=== PATIENT | female | born 1970 | race Caucasian/White ===

== ENCOUNTER 2019-05-10 08:56 | Outpatient (CLI) | payer OTHER, SELFPAY ==
--- NOTE | ~2019-05-10 | MM_ITS ---
EXAMINATION: MM screening [facility] BI w andre HISTORY: Screening mammogram TECHNIQUE: Craniocaudal and mediolateral oblique 3-D tomosynthesis images were obtained and synthetic 2-D images were generated. CAD analysis was submitted and interpreted. COMPARISON: 12/26/2015, 05/05/2012 BREAST PARENCHYMAL COMPOSITION: The breasts are heterogeneously dense, which may obscure small masses . FINDINGS: There is no evidence of suspicious mass, calcification, or architectural distortion to sugg est malignancy in either breast. There has been no suspicious interval change. IMPRESSION: 1. No mammographic evidence of malignancy. 2. Recommend routine screening mammography in one year. BI-RADS Category 1: Negative Reviewed, dictated and finalized at location A. ON OFFICER
== END 2019-05-10 08:57 | disposition home or self-care (01) ==
LOC: ANHIMG 09:00
PROVIDERS: PCP Obstetrics & Gynecology; Visit Provider Obstetrics & Gynecology
DX: Z12.31 Encounter for screening mammogram for malignant neoplasm of breast (principal)
CPT/HCPCS: 77063; 77067

== ENCOUNTER 2021-03-03 09:20 | Outpatient (CLI) | payer OTHER, SELFPAY ==
[2021-03-03 09:54] LABS: Basophils Absolute Auto 0.1 K/mm3 (0.0-0.1); Eosinophils Absolute Auto 0.3 K/mm3 (0-0.3); Eosinophils Percent Auto 5.4 % (0-4.4); Hemoglobin 13.2 g/dL (12.0-15.0); Immature Granulocyte Absolute 0.01 K/mm3 (0.00-0.031); Immature Granulocyte Percent A 0.2 % (0-0.5); Lymphocytes Absolute Auto 1.87 K/mm3 (0.9-3.2); Lymphocytes Percent Auto 31.6 % (18.3-44.2); Mean Corpuscular HGB Conc 33.8 g/dl (32-36); Mean Corpuscular Hemoglobin 32.4 pg (26-34); Mean Corpuscular Volume 95.8 fl (80-100); Mean Platelet Volume 9.2 fl (7.4-10.4); Monocytes Absolute Auto 0.4 K/mm3 (0.1-0.6); Monocytes Percent Auto 6.8 % (2.6-8.5); Neutrophils Absolute Auto 3.3 K/mm3 (1.3-6.7); Platelet Count Result 194 k/mm3 (150-375); Red Blood Count 4.07 M/mm3 (4.2-5.4); Red Cell Distribution Width 12.6 % (11.5-14.5); White Blood Count 5.9 K/mm3 (4.5-10.0)
== END 2021-03-03 09:21 | disposition home or self-care (01) ==
LOC: ANHSURGERY 09:25
PROVIDERS: Anesthesiology; PCP Family Medicine Sports Medicine; Visit Provider Obstetrics & Gynecology
DX: N93.8 Other specified abnormal uterine and vaginal bleeding (principal); Z01.818 Encounter for other preprocedural examination
CPT/HCPCS: 36415; 85025; 86850; 86900; 86901

== ENCOUNTER 2021-03-07 01:05 | Day surgery (SDC) | payer OTHER, SELFPAY ==
[2021-02-24 09:53] VITALS: BMI 21.7
--- NOTE | 2021-02-24 10:36 | PC.NURSE ---
Report to the Outpatient Waiting Room, entrance under the green pavilion located off [address], at time _0600 on date _03/07/21 . OR Time: __729 . - You and your visitor will be asked a series of questions to screen for COVID 19 for your protection. - A mask is required within the hospital. - Only one visitor is allowed at this time. Patient visitors will be guided where to wait when not with patient. Preoperative COVID Testing Requirements: No COVID Test needed if: (proof is required; if not received patient will have Rapid Test prior to entry) PATTIENT IS FULLY VACCINATED - Patient has received COVID Vaccine at least 14 days prior to procedure date or - Patient has positive COVID test result within last 90 days of surgery date. COVID Test needed if above criteria is not met If not COVID vaccinated a COVID test must be conducted within 72 hours of surgery and patient is asked to isolate self from time of testing until procedure. You will go to the [facility] for your COVID testing. The [facility] is located at the corner of [address] [facility]. You will only be called if COVID results are positive and your surgeon may reschedule your elective surgery date. Patients may have clear liquids (water, carbonated beverages, clear teas, apple juice) until 3 hours prior to surgery with a maximum of 20 ounces. - No food from midnight until time of surgery - Infants may have breast milk until 4 hours before surgery, formula 6 hours prior to surgery. - Children will be allowed to drink immediately following surgery. If applicable, please bring a bottle or sippy cup to assist with drinking. Juice, water, soda, and popsicles are readily available. For infants on formula, please bring formula the day of surgery. Pacifiers are allowed. Take the following medications with a SIP of water the morning of surgery: __SYMBICORT, PROAIR Medications to discontinue per physician N/A Date to take last dose____N/A Please no make-up, nail eritrean, hairspray, perfume, deodorant, or body powder the day of surgery. No jewelry (including any body piercings) or valuables the day of surgery, leave them at home. Please take a shower or bath the night before, or the morning of, surgery with an antibacterial soap. Wear comfortable, loose fitting clothing. Children are encouraged to wear pajamas. - Jewelry must be removed prior to entering the operating room. Rings and piercings that are not removed may be cut off. - The hospital will not accept responsibility for valuables. - Please leave all valuables, including medications, at home the day of surgery. If you are going home after surgery, a licensed dairy truck driver must drive you home. - NO public transportation without another adult. - We recommend that an adult stay with you for 24 hours following discharge. - We also recommend that you do not drive, make important decision, drink alcoholic beverages, or take any drugs that were not prescribed by your health care provider for at least 24 hours after your discharge time. For Pediatric surgeries, we recommend two adults accompany the child home (only one inside the building at this time). Follow any additional instructions given to you from your surgeon. Telephone instructions given to TIA DUKE and asked if any additional questions and then verbalized understanding. Patient advised to call surgeon office or pre surgery nurse liaison [phone] if any additional questions.
--- NOTE | 2021-03-04 13:13 | PM.IMHP ---
H&P: HPI History of Present Illness Date/Time: 03/04/21 13:13 50-year-old 3 para 3 admitted for robotic total vaginal hysterectomy and bilateral salpingo-oophorectomy secondary to symptomatic uterine fibroids. She continues to have heavy menstrual periods and a lot of pain and discomfort. Risks and benefits were reviewed in great detail including but not exclusive of , aspiration pneumonia, bleeding, transfusion, perforation injury to bowel, bladder, ureters, or other internal organs with need for open laparotomy. She received the ACOG handout entitled hysterectomy as well as the de Clint hand. It she had all questions answered and asked to proceed Chief Complaint: Symptomatic uterine fibroids Review of Systems Review of Systems: All systems reviewed & are unremarkable except as noted in HPI and below PMFSH Social History Social History Smoking status: Never smoker Alcohol intake: current Substance use: never Substance use type: does not use Spiritual care concerns: No Meds Home Medications and Allergies Home Medications Medication Instructions Recorded Confirmed Type albuterol sulfate 2 puff INHALATION DAILY PRN 02/24/21 02/24/21 History budesonide-formoterol [Symbicort] 2 puff INHALATION PRN PRN 02/24/21 02/24/21 History Allergies Allergy/AdvReac Type Severity Reaction Status Date / Time No Known Allergies Allergy Unknown Unverified 03/01/15 08:49 Exam Const: General: no acute distress Eyes: General: appearance normal, both eyes and all related structures Neck: Neck: supple and no JVD Thyroid: thyroid normal Resp: Effort & Inspection: normal respiratory effort Auscultation: clear to auscultation bilaterally Cardio: Rate: regular rate Rhythm: regular rhythm GI: Inspection: non-distended GI Palp: Yes Soft to palpation, No Tenderness to palpation present (GI) and No Guarding due to palpation present (GI) Auscultation: normal bowel sounds : External Female Exam: normal external appearance Speculum Exam - Vagina: normal appearance of the vagina Speculum Exam - Cervix: normal appearance of the cervix Bimanual exam- vagina & uterus: enlarged Bimanual Exam- Adnexa, other: no masses Skin: General skin exam: no rashes or lesions noted Extrem: General: normal to inspection and no edema Psych: Mental Status: mental status grossly normal Affect: normal affect Assessment and Plan Additional Plan Impression: Symptomatic uterine fibroids Plan: Robotic total vaginal hysterectomy and bilateral salpingo-oophorectomy
[2021-03-07] VITALS (14 sets, daily range): BP systolic 86–113; BP diastolic 47–66; PULSE 50–74; RESP 10–18; TEMP 36.1–37.4; O2SAT 98–100
--- NOTE | 2021-03-07 06:46 | P.PNAN_ITS ---
Anes - Initial Pre Proc Eval Procedure: Operation Date: 03/07/21 07:30 Proposed Procedures p Robotic Assisted Total Vaginal Hysterectomy with Bilateral Salpingo- oophorectomy - Justin Berman MD Date/Time: 03/07/21 06:46 Surgeon: Justin Berman MD Pre Op Diagnosis: fibroids, heavy bleeding, prolapse Patient Data Age: 50 Gender: F Height: 1.73 m Weight: 66 kg Allergies Allergy/AdvReac Type Severity Reaction Status Date / Time No Known Allergies Allergy Unknown Unverified 03/01/15 08:49 Home Medications Medication Instructions Recorded Confirmed Type albuterol sulfate 2 puff INHALATION DAILY PRN 02/24/21 02/24/21 History budesonide-formoterol [Symbicort] 2 puff INHALATION PRN PRN 02/24/21 02/24/21 History Patient hx anesthesia problems: post op nausea/vomiting Family hx anesthesia problems: none Results Review: All pre-operative results and documents have been reviewed as part of the pre-operative evaluation. [facility] Past Medical History Medical History Acute intermittent porphyria Asthma Social History Social History Smoking status: Never smoker Alcohol intake: current Substance use: never Substance use type: does not use Living arrangements: with family Spiritual care concerns: No Anes - Eval Final PreProcedure Day of Procedure 03/07/21 06:46 Patient weight: normal Heart: regular rate and rhythm Lungs: clear to auscultation Airway: Mallampati scale class II Neurological: alert and oriented Last oral intake: >/= 8 hours ASA classification: III Emergent: no Anesthetic plan: proceed Anesthesia type and monitoring: general ETT and standard monitoring Results Review: All pre-operative results and documents have been reviewed as part of the pre-operative evaluation. Informed Consent: The patient's anesthetic plan and its attendant risks and benefits were discussed with the patient/family/POA. Questions were solicited and answers provided to the satisfaction of the patient/family/POA.
[2021-03-07] MEDS: ACETAMINOPHEN 500 MG TABLET 1000 MG PO (07:00)
--- NOTE | 2021-03-07 07:00 | WPDHPUPDATE1 ---
History and Physical Update Update Date/Time: 03/07/21 07:00 History and Physical has been reviewed, including an updated exam of the patient. There are NO changes in the patient's condition. Risks, benefits, and alternatives have been discussed and questions answered. Patient agrees to proceed with procedure.
[2021-03-07] MEDS: KETOROLAC 15 MG/ML VIAL (*BKC) IV PUSH (07:15)
[2021-03-07] MEDS: LACTATED RINGERS 1,000 ML 30 ML IV CONT ×2 (07:15→08:50)
[2021-03-07] MEDS: SCOPOLAMINE 1.5 MG PATCH TRANSDERM (07:21)
[2021-03-07] MEDS: ceFAZolin 2 GM/D5W 50 ML 2 GM/50 ML BAG IVPB (07:23)
--- NOTE | 2021-03-07 08:36 | W.PM.PROC2 ---
Procedure Note - Detailed Date of Procedure 03/07/21 Pre-op Diagnosis fibroids, heavy bleeding, prolapse Post-op Diagnosis same Procedure Performed Robotic total vaginal hysterectomy and bilateral salpingo-oophorectomy Surgeon Justin Berman MD Anesthesia general Indications Is a 50-year-old female with uterine prolapse pelvic pain bleeding and uterine fibroids Findings Enlarged uterus with normal-appearing tubes and ovaries Description of Procedure The patient was prepped draped in the normal sterile fashion placed in the dorsal lithotomy position. Under excellent general endotracheal anesthesia weighted speculum placed in posterior fornix vagina. Anterior lip of the cervix grasped with a single-tooth tenaculum and the uterus sounded to 10cm. Serial dilatation with fragmented dilators performed followed by passage of 8mm WILY and 3. Cold cup. A 16 Bulgarian catheter was placed in the bladder and the weighted speculum and single-tooth tenaculum removed. The gloves were changed A supraumbilical incision made the Veress needle passed in the abdomen. The abdomen filled with CO2 gas [id number]. The 8mm trocar advanced in the abdomen. The downside visualized no injury seen. Patient placed in Trendelenburg and left and right lateral quadrant incisions made. The 8mm trocars advanced under direct visualization assuring no injury. A right upper quadrant incision made and the 8mm trocar advanced under direct visualization assuring no injury. The robot was docked. Attention was turned to the retirement plan counselor. The left round ligament was grasped, burned, cut. Anterior bladder flap was formed by sharply dissecting the peritoneum and reflecting the bladder caudally away from the uterus and cervix to the opposite ligament which was clamped, burned, cut. The uterus was large and bulky. The infundibulopelvic structure on the left was skeletonized behind the ovary tube clamped, burned, cut and brought to level of previously cut round ligament. Removing the right ovary and tube the infundibulopelvic structure on the right was clamped, burned, cut and brought to the level of previous cut round ligament. Next the cardinal broad ligaments on the left were serially skeletonized. These were clamped, burned, cut and brought down the lateral edge of the uterus and cervix until the large tortuous vessels on the left could be seen. These were individually clamped, burned, cut. In like fashion the cardinal broad ligaments were serially skeletonized hugging the cervix and uterus on the right clamped, burned, cut and brought down the lateral edge until the uterine vessels could be seen on the right. These were individually clamped, burned, cut. Blanching of the uterus was seen and a colpotomy incision was made. The uterus cervix tubes and ovaries removed through the vagina. Blood loss was [id number] at that point. The uterus was passed off the table as the with the specimen. The vagina was closed with continuous running 0V lock from lateral edge to lateral edge back to the midline. Irrigation undertaken to clear and the pedicles appeared dry the raw surface areas were sprinkled with [place] term. Blood loss was estimated 25cc. The robot was undocked. The gas removed from the abdomen. The trocars removed from the abdomen the incisions closed with 4 Monocryl and glue. The instruments removed from vagina and the patient was awakened. She went to recovery in satisfactory condition. All sponge, needle, instrument counts were correct. There were no immediate complications Estimated Blood Loss 25 Drains No Packing No Pathology yes Complications No immediate complications Condition stable Disposition PACU
--- NOTE | 2021-03-07 09:30 | SUR.PHASEI ---
FAXED SUZANNE @[id number] AND SPOKE WITH OB 2ND FLOOR RIB STIFFENER AND HEEL DIPPER
[2021-03-07] MEDS: DEXTROSE 5%/LACTATED RINGERS 1,000 ML 125 ML IV CONT ×2 (11:24→19:09)
[2021-03-07] MEDS: KETOROLAC 30 MG/ML VIAL (*BKC) IV PUSH (13:46)
--- NOTE | 2021-03-07 13:53 | PC.NURSE ---
This patient, Angeline Chavez, was received from PACU on 03/07/21 at 1026. Patient/family oriented to unit policies and routines.
[2021-03-07] MEDS: ONDANSETRON INJ 4 MG/2 ML VIAL IV PUSH (19:14)
[2021-03-07] MEDS: SODIUM CHLORIDE 0.9% IV 1,000 ML 999 ML IV CONT (20:27)
[2021-03-08 03:37] VITALS: BP 93/54; PULSE 61; RESP 16; TEMP 37.4
[2021-03-08 04:50] LABS: Basophils Percent Auto 0.3 % (0.2-1.2); Eosinophils Absolute Auto 0.1 K/mm3 (0-0.3); Eosinophils Percent Auto 0.5 % (0-4.4); Hematocrit 33.1 % (37.0-47.0); Hemoglobin 11.1 g/dL (12.0-15.0); Immature Granulocyte Absolute 0.07 K/mm3 (0.00-0.031); Immature Granulocyte Percent A 0.6 % (0-0.5); Lymphocytes Percent Auto 19.1 % (18.3-44.2); Mean Corpuscular HGB Conc 33.5 g/dl (32-36); Mean Corpuscular Hemoglobin 32.6 pg (26-34); Mean Corpuscular Volume 97.4 fl (80-100); Mean Platelet Volume 9.5 fl (7.4-10.4); Monocytes Absolute Auto 0.8 K/mm3 (0.1-0.6); Monocytes Percent Auto 6.2 % (2.6-8.5); Neutrophils Absolute Auto 8.8 K/mm3 (1.3-6.7); Neutrophils Percent Auto 73.3 % (45.5-73.1); Platelet Count Result 206 k/mm3 (150-375)
--- NOTE | 2021-03-08 07:02 | PM.DS ---
DS: Admitting Diagnosis Discharge Date 03/08/2021 Admitting Diagnosis enlarged uterus/excessive heavy bleeding/uterine prolapse DS: Summary Hospital Course Hospital Course: the patient was admitted for robotic total vaginal hysterectomy and bilateral salpingo-oophorectomy. This was performed robotically on 03/07/21. She remained afebrile. She was up, voiding without difficulty, ambulating, and generally without complaints. Time Spent with Patient Time attestation: Total time spent providing and/or coordinating discharge services: Exam Const: General: no acute distress Eyes: General: appearance normal, both eyes and all related structures Neck: Neck: supple and no JVD Thyroid: thyroid normal Resp: Effort & Inspection: normal respiratory effort Auscultation: clear to auscultation bilaterally Cardio: Rate: regular rate Rhythm: regular rhythm GI: Inspection: non-distended GI Palp: Yes Soft to palpation, No Tenderness to palpation present (GI) and No Guarding due to palpation present (GI) Auscultation: normal bowel sounds : General: Yes bladder normal to palpation External Female Exam: normal external appearance Speculum Exam - Vagina: normal vaginal discharge and No vaginal bleeding Speculum Exam - Cervix: nontender Bimanual exam- vagina & uterus: bladder normal to palpation and No Cervical tenderness present OB/external & speculum: No vaginal bleeding Skin: General skin exam: no rashes or lesions noted Extrem: General: normal to inspection and no edema Psych: Mental Status: mental status grossly normal Affect: normal affect DS: Data Data Completed and Pending Pending studies at discharge: Pending at discharge 03/07/21 08:05 Surgical [PTH] Routine Labs on day of discharge: Labs from last 24 hours 03/08/21 03:46 WBC 12.0 H RBC 3.40 L Hgb 11.1 L Hct 33.1 L MCV 97.4 MCH 32.6 MCHC 33.5 RDW 13.0 Plt Count 206 MPV 9.5 Immature Gran % (Auto) 0.6 H Neut % (Auto) 73.3 H Lymph % (Auto) 19.1 Morton % (Auto) 6.2 Eos % (Auto) 0.5 Baso % (Auto) 0.3 Lymph # (Auto) 2.30 Morton # (Auto) 0.8 H Eos # (Auto) 0.1 Baso # (Auto) 0.0 Abs Immat Gran (auto) 0.07 H Absolute Neuts (auto) 8.8 H Absolute Nucleated RBC 0.0 Nucleated RBC % 0.0 Discharge Plan Discharge Patient Disposition: Home, Self-Care Stand Alone Forms: General Discharge Instructions Follow-up/Referrals: Justin Berman MD [Physician] - Discharge Medications: New hydrocodone-acetaminophen 5-325 mg tablet 1 tablet PO Q4H PRN (Reason: pain) Qty: 30 RF: 0 No Action budesonide-formoterol [Symbicort] 160-4.5 mcg/actuation HFA aerosol inhaler 2 puff INHALATION PRN PRN (Reason: SOB) RF: 0 albuterol sulfate 90 mcg/actuation HFA aerosol inhaler 2 puff INHALATION DAILY PRN (Reason: SOB) RF: 0
--- NOTE | 2021-03-08 07:04 | PM.GYNPNOP ---
DRY ICE MACHINE OPERATOR - A/P Postoperative Procedures: Procedures Operation Date: 03/07/21 07:30 Actual Procedure Side Surgeon p Robotic Assisted Total Vaginal Hysterectomy with Bilateral Salpingo-oophorectomy Justin Berman MD Postoperative day: 1 Postoperative status: doing well Postoperative plan: routine post-op care, see orders, advance diet and discharge Time Spent With Patient Time: Total time spent is greater than 50% in coordination of care (as documented) at patient's floor/unit and/or counseling patient: Time with patient: less than 15 minutes DRY ICE MACHINE OPERATOR- PN:Subj Post-Op Subjective Date/time seen: 03/08/21 07:04 Subjective: patient reports feeling better and patient has no complaints Review of Systems Review of Systems: All systems reviewed & are unremarkable except as noted in HPI and below Exam Const: General: no acute distress Eyes: General: appearance normal, both eyes and all related structures Neck: Neck: supple and no JVD Thyroid: thyroid normal Resp: Effort & Inspection: normal respiratory effort Auscultation: clear to auscultation bilaterally Cardio: Rate: regular rate Rhythm: regular rhythm GI: Inspection: non-distended GI Palp: Yes Soft to palpation, No Tenderness to palpation present (GI) and No Guarding due to palpation present (GI) Auscultation: normal bowel sounds : General: Yes bladder normal to palpation External Female Exam: normal external appearance Speculum Exam - Vagina: normal vaginal discharge and No vaginal bleeding Speculum Exam - Cervix: nontender Bimanual exam- vagina & uterus: bladder normal to palpation and No Cervical tenderness present OB/external & speculum: No vaginal bleeding Skin: General skin exam: no rashes or lesions noted Extrem: General: normal to inspection and no edema Psych: Mental Status: mental status grossly normal Affect: normal affect DRY ICE MACHINE OPERATOR - PN: Obj Data Vital Signs Vital Signs: Vital Signs - 24 hr 03/07/21 07:26 03/07/21 08:50 03/07/21 09:05 Temperature 98.0 F 97.4 F L Pulse Rate 69 59 L 50 L Respiratory Rate 14 10 L Blood Pressure 113/66 108/56 L 100/57 L Pulse Oximetry 100 100 100 03/07/21 09:15 03/07/21 09:30 03/07/21 09:45 Temperature Pulse Rate 54 L 51 L 50 L Respiratory Rate 14 16 14 Blood Pressure 99/62 L 104/58 L 102/64 Pulse Oximetry 100 100 99 03/07/21 10:00 03/07/21 10:15 03/07/21 10:30 Temperature 97 F L Pulse Rate 53 L 64 56 L Respiratory Rate 14 14 16 Blood Pressure 101/60 99/61 L 94/48 L Pulse Oximetry 99 99 100 03/07/21 12:05 03/07/21 13:30 03/07/21 16:30 Temperature 97.8 F 98.5 F 98.5 F Pulse Rate 68 68 74 Respiratory Rate 16 18 18 Blood Pressure 87/47 L 90/47 L 86/52 L Pulse Oximetry 98 99 03/07/21 19:17 03/07/21 22:48 03/08/21 03:37 Temperature 98.7 F 99.4 F 99.4 F Pulse Rate 60 60 61 Respiratory Rate 18 16 16 Blood Pressure 88/53 L 87/50 L 93/54 L Pulse Oximetry Intake/Output Intake/Output: Intake & Output 03/05/21 03/06/21 03/07/21 03/08/21 23:59 23:59 23:59 23:59 Intake Total 1600 475 Output Total 1680 400 Balance -80 75 Meds/Results Medications: Active Medications Generic Name Dose Route Start Last Admin Trade Name Freq PRN Reason Stop Dose Admin Hydrocodone Bitart/Acetaminophen 1 tab 03/07/21 10:21 Hydrocodone/Acetaminophen (*Crx) 5-325 Mg Tablet PO Q3H PRN Pain Rated 5 or Less Hydrocodone Bitart/Acetaminophen 1 tab 03/07/21 10:21 Hydrocodone/Acetaminophen (*Crx) 10-325 Mg Tablet PO Q3H PRN Pain Rated 6 or Greater Docusate Sodium 100 mg 03/07/21 09:00 03/07/21 19:34 Docusate Sodium 100 Mg Capsule PO Not Given BID SANIYA Enoxaparin Sodium 40 mg 03/08/21 09:00 Enoxaparin 40 Mg/0.4 Ml Syringe SUB-Q DAILY SANIYA Dextrose/Lactated Ringer's 1,000 mls @ 125 mls/hr 03/07/21 10:21 03/07/21 19:09 Dextrose 5%/Lactated Ringers IV CONT 125 mls/hr .Q8H SANIYA Administration Ibuprofen 600 mg 03/07/21 10:21
[2021-03-08] MEDS: DOCUSATE SODIUM 100 MG CAPSULE PO (07:41)
[2021-03-08] MEDS: IBUPROFEN 600 MG TABLET PO (07:41)
[2021-03-08 07:54] VITALS: BP 104/60; PULSE 99; RESP 12; TEMP 36.5; O2SAT 99
[2021-03-08] MEDS: ENOXAPARIN 40 MG/0.4 ML SYRINGE SUB-Q (10:00)
== END 2021-03-08 11:50 | disposition home or self-care (01) ==
LOC: ANHSURGERY 07:07 → ANHOB2 10:25
PROVIDERS: PCP Family Medicine Sports Medicine; Visit Provider Obstetrics & Gynecology
PROC: (CPT 58552; principal; 2021-03-07 07:30)
DX: N81.4 Uterovaginal prolapse, unspecified (principal); N93.9 Abnormal uterine and vaginal bleeding, unspecified; D25.9 Leiomyoma of uterus, unspecified; N80.0 Endometriosis of uterus; N83.02 Follicular cyst of left ovary; N83.01 Follicular cyst of right ovary; N83.8 Other noninflammatory disorders of ovary, fallopian tube and broad ligament; R10.2 Pelvic and perineal pain; E80.21 Acute intermittent (hepatic) porphyria; J45.909 Unspecified asthma, uncomplicated; Z79.51 Long term (current) use of inhaled steroids
CPT/HCPCS: 58552; S2900; 36415; 85025; 86850; 86900; 86901; 88307; 99199; A9270; J0690; J1100; J1170; J1650; J1885; J2250; J2405; J2704; J2710; J3010; J7030; J7120; J7121

== ENCOUNTER 2021-03-27 11:39 | Outpatient (CLI) | payer OTHER, SELFPAY ==
--- NOTE | 2021-03-27 | ECG_ITS ---
Measurements Intervals [place] Rate: 71 P: 78 TX: 139 QRS: 71 QRSD: 88 T: 57 QT: 384 QTc: 419 Interpretive Statements SINUS RHYTHM NORMAL ECG Electronically Signed On 03-27-2021 16:56:34 DATA WAREHOUSE ADMINISTRATOR by Luis Manuel Lobo D.O.
== END 2021-03-27 11:40 | disposition home or self-care (01) ==
LOC: ANHCARD 11:41
PROVIDERS: PCP Family Medicine Sports Medicine; Visit Provider Obstetrics & Gynecology
DX: R07.9 Chest pain, unspecified (principal)
CPT/HCPCS: 93005

== ENCOUNTER 2021-04-04 00:18 | Emergency (ER) | payer OTHER, SELFPAY ==
[2021-04-04 00:30] VITALS: BP 123/81; PULSE 86; RESP 16; TEMP 36.3; O2SAT 100
[2021-04-04 03:15] VITALS: BP 116/73; PULSE 72; RESP 16; O2SAT 99
[2021-04-04 03:24] LABS: Basophils Absolute Auto 0.1 K/mm3 (0.0-0.1); Basophils Percent Auto 0.9 % (0.2-1.2); Eosinophils Absolute Auto 0.7 K/mm3 (0-0.3); Eosinophils Percent Auto 9.2 % (0-4.4); Hemoglobin 14.4 g/dL (12.0-15.0); Immature Granulocyte Absolute 0.02 K/mm3 (0.00-0.031); Immature Granulocyte Percent A 0.3 % (0-0.5); Lymphocytes Absolute Auto 2.28 K/mm3 (0.9-3.2); Mean Corpuscular HGB Conc 33.5 g/dl (32-36); Mean Corpuscular Volume 95.6 fl (80-100); Mean Platelet Volume 9.4 fl (7.4-10.4); Monocytes Absolute Auto 0.5 K/mm3 (0.1-0.6); Monocytes Percent Auto 5.7 % (2.6-8.5); Neutrophils Absolute Auto 4.3 K/mm3 (1.3-6.7); Neutrophils Percent Auto 54.9 % (45.5-73.1); Platelet Count Result 232 k/mm3 (150-375); Red Cell Distribution Width 12.8 % (11.5-14.5); White Blood Count 7.9 K/mm3 (4.5-10.0)
[2021-04-04 04:01] LABS: Anion Gap 8 mmol/L (8-16); Blood Urea Nitrogen 16 mg/dL (7-17); Calcium 9.3 mg/dL (8.4-10.2); Carbon Dioxide 27 mmol/L (22-30); Chloride 102 mmol/L (98-107); Estimated CRCL calculation 71 ml/min; Estimated Glomerular Filt Rate > 60; Glucose 110 mg/dL (65-110); Potassium 4.2 mmol/L (3.4-5.0); Sodium 137 mmol/L (137-145)
[2021-04-04 05:11] VITALS: BP 113/66; PULSE 67; RESP 16; O2SAT 98
--- NOTE | 2021-04-04 05:16 | ED.GENADULT ---
HPI - General Adult General Chief complaint: Vaginal Bleeding Stated complaint: vaginal bleeding x 1 week Time Seen by Provider: 04/04/21 02:53 History of Present Illness HPI narrative: Patient is a 50-year-old female who presents ER with vaginal bleeding. Patient is 3 weeks postop from a robotic total hysterectomy performed by Dr. Louie Pastrana. She is going to her postoperative appointments and they have been unremarkable. She began having some small amounts of bleeding over the last 10 days. It increased this evening and she bled through 2 pads within an hour. She called the OB on-call and she decided she would come in for further evaluation. No lightheadedness. She is on no blood thinners. She has had no pelvic trauma. No burning urination or urinary frequency/urgency. Related Data Home Medications Medication Instructions Recorded Confirmed albuterol sulfate 2 puff INHALATION DAILY PRN 02/24/21 03/07/21 budesonide-formoterol [Symbicort] 2 puff INHALATION PRN PRN 02/24/21 03/07/21 Allergies Allergy/AdvReac Type Severity Reaction Status Date / Time No Known Allergies Allergy Unknown Verified 04/04/21 00:34 Review of Systems Review of Systems: All systems reviewed & are unremarkable except as noted in HPI and below Constitutional: Constitutional: Denies chills, Denies fever(s) and Denies weakness Gastrointestinal: Gastrointestinal: Denies abdominal pain, Denies diarrhea, Denies nausea and Denies vomiting Genitourinary: Genitourinary: Reports abnormal vaginal bleeding, Denies nocturia, Denies dysuria and Denies vaginal discharge Neurologic: Denies dizziness and Denies syncope PMFSH Past Medical History Medical History (Updated 04/04/21 @ 05:17 by Nolan Forman MD) Acute intermittent porphyria Asthma Surgical History Surgical History (Updated 04/04/21 @ 07:28 by Nolan Forman MD) History of hysterectomy Social History Social History Smoking status: Never smoker Alcohol intake: current Substance use: never Substance use type: does not use Spiritual care concerns: No Exam Narrative: GENERAL: Well-appearing, well-nourished, and in no acute distress. HEAD: Normocephalic, atraumatic. NECK: Supple. CHEST: Clear to auscultation. No respiratory distress. HEART: Regular rate and rhythm. Normal peripheral pulses. ABDOMEN: Soft, nontender, nondistended. : Normal external genitalia. Vaginal cuff intact on speculum exam with sutures present. Small clot cleared and there is trace oozing from the center part of the cuff. EXTREMITIES: Normal range of motion. No edema. SKIN: Warm, dry, no rash. NEURO: Alert and oriented x3. PSYCH: Normal mood and affect. Course Course Emergency Course: Discussed with Dr. Pitts who is on-call for Dr. Louie Pastrana. Informed of lab findings and physical exam. They will see patient on 04/07/2020 in clinic and determine if she needs any Monsel solution or silver nitrate. Patient educated about treatment plan. Discharge home. Vital Signs Vital signs: Vital Signs Temperature 97.4 F L 04/04/21 00:30 Pulse Rate 86 04/04/21 00:30 Respiratory Rate 16 04/04/21 00:30 Blood Pressure 123/81 04/04/21 00:30 Pulse Oximetry 100 04/04/21 00:30 Temperature 97.4 F L 04/04/21 00:30 Pulse Rate 67 04/04/21 05:11 Respiratory Rate 16 04/04/21 05:11 Blood Pressure 113/66 04/04/21 05:11 Pulse Oximetry 98 04/04/21 05:11 Medical Decision Making Vital Signs Vital Signs: Vital Signs Temperature 97.4 F L 04/04/21 00:30 Pulse Rate 86 04/04/21 00:30 Respiratory Rate 16 04/04/21 00:30 Blood Pressure 123/81 04/04/21 00:30 Pulse Oximetry 100 04/04/21 00:30 Temperature 97.4 F L 04/04/21 00:30 Pulse Rate 67 04/04/21 05:11 Respiratory Rate 16 04/04/21 05:11 Blood Pressure 113/66 04/04/21 05:11 Pulse Oximetry 98 04/04/21 05:11 Lab Data Result di
== END 2021-04-04 05:26 | disposition home or self-care (01) ==
PROVIDERS: Emergency Provider Emergency Medicine; PCP Family Medicine Sports Medicine
DX: N99.821 Postprocedural hemorrhage of a genitourinary system organ or structure following other procedure (principal); Z90.710 Acquired absence of both cervix and uterus
CPT/HCPCS: 36415; 80048; 85025; 99283

== ENCOUNTER 2022-03-25 01:33 | Day surgery (SDC) | payer OTHER, SELFPAY ==
[2022-02-03 12:36] VITALS: BMI 22.8
--- NOTE | 2022-02-06 16:52 | PM.HPGS ---
History of Present Illness History of Present Illness Consent: Risks, benefits, and alternatives have been discussed and questions answered. Patient agrees to proceed with procedure. Chief complaint: neoplasm screening Narrative: Angeline Chavez is a 51 year old female Referred for colon cancer screening. Review of Systems Review of Systems: All systems reviewed & are unremarkable except as noted in HPI and below PMFSH Past Medical History Medical History (Updated 02/06/22 @ 16:53 by Telly Rowe MD) Acute intermittent porphyria Asthma Surgical History Surgical History (Updated 04/04/21 @ 07:28 by Nolan Forman MD) History of hysterectomy Social History Social History Smoking status: Never smoker Alcohol intake: current Drinks per week: 2 Substance use: never Substance use type: does not use Living arrangements: with family Spiritual care concerns: No Meds Home Medications and Allergies Home Medications Medication Instructions Recorded Confirmed Type albuterol sulfate 90 mcg/actuation 2 puff inhalation DAILY PRN SOB 02/24/21 02/03/22 History aerosol inhaler budesonide-formoterol HFA 160 2 puff inhalation PRN PRN SOB 02/24/21 02/03/22 History mcg-4.5 mcg/actuation aerosol inhaler (Symbicort) sertraline 100 mg tablet (Zoloft) 100 mg PO DAILY 02/03/22 02/03/22 History Allergies Allergy/AdvReac Type Severity Reaction Status Date / Time No Known Allergies Allergy Unknown Verified 04/04/21 00:34 Exam Const: General: alert Orientation/consciousness: patient oriented x3 Resp: Auscultation: clear to auscultation bilaterally Cardio: Rhythm: regular rhythm GI: GI Palp: Yes Soft to palpation and No Tenderness to palpation present (GI) Neuro: General: patient oriented x3 Assessment and Plan Assessment and plan (1) Colon cancer screening: Code(s): Z12.11 - Encounter for screening for malignant neoplasm of colon Status: Acute Assessment and Plan: Colonoscopy with possible biopsy or polypectomy or cautery or injection of substances.
[2022-03-11 14:17] VITALS: BMI 22.1
--- NOTE | 2022-03-24 14:16 | P.HP_ITS ---
History of Present Illness History of Present Illness Consent: Risks, benefits, and alternatives have been discussed and questions answered. Patient agrees to proceed with procedure. Chief complaint: neoplasm screening Narrative: Angeline Chavez is a 51 year old female referred for colon cancer screening. Review of Systems Review of Systems: All systems reviewed & are unremarkable except as noted in HPI and below PMFSH Past Medical History Medical History Acute intermittent porphyria Asthma Surgical History Surgical History History of hysterectomy Social History Social History Smoking status: Never smoker Alcohol intake: current Drinks per week: 5 Substance use: never Substance use type: does not use Living arrangements: with family Spiritual care concerns: No Meds Home Medications and Allergies Home Medications Medication Instructions Recorded Confirmed Type albuterol sulfate 90 mcg/actuation 2 puff inhalation DAILY PRN SOB 02/24/21 02/03/22 History aerosol inhaler budesonide-formoterol HFA 160 2 puff inhalation PRN PRN SOB 02/24/21 02/03/22 H istory mcg-4.5 mcg/actuation aerosol inhaler (Symbicort) sertraline 100 mg tablet (Zoloft) 100 mg PO DAILY 02/03/22 02/03/22 History sodium,potassium,mag sulfates 17.5 See Rx Instructions PO .COMPLEX 02/11/22 03/11/22 Rx gram-3.13 gram-1.6 gram oral soln #354 mL (Suprep Bowel Prep Kit) conjugated estrogens 0.625 mg 0.625 mg PO DAILY 03/11/22 03/11/22 History tablet (Premarin) Allergies Allergy/AdvReac Type Severity Reaction Status Date / Time No Known Allergies Allergy Unknown Verified 03/25/22 07:59 Exam Const: General: alert Orientation/consciousness: patient oriented x3 Resp: Auscultation: clear to auscultation bilaterally Cardio: Rhythm: regular rhythm GI: GI Palp: Yes Soft to palpation and No Tenderness to palpation present (GI) Neuro: General: patient oriented x3 Assessment and Plan Assessment and plan (1) Colon cancer screening: Code(s): Z12.11 - Encounter for screening for malignant neoplasm of colon Status: Acute Assessment and Plan: Colonoscopy with possible biopsy or polypectomy or cautery or injection of substances.
[2022-03-25 08:01] VITALS: BP 112/65; PULSE 68; RESP 20; TEMP 36.1; O2SAT 98; BMI 22.4
[2022-03-25] MEDS: LACTATED RINGERS 1,000 ML 150 ML IV CONT (08:04)
--- NOTE | 2022-03-25 08:31 | P.PNAN_ITS ---
Anes - Initial Pre Proc Eval Procedure: Operation Date: 03/25/22 09:00 Proposed Procedures p Screening Colonoscopy - Telly Rowe MD Date/Time: 03/25/22 08:31 Surgeon: Telly Rowe MD Pre Op Diagnosis: neoplasm screening Patient Data Age: 51 Gender: F Height: 1.73 m Weight: 66.7 kg Last Vital Signs Temp 36.1 C L 03/25/22 08:01 Pulse 68 03/25/22 08:01 Resp 20 03/25/22 08:01 BP 112/65 03/25/22 08:01 Pulse Ox 98 03/25/22 08:01 O2 Del Method Room Air 03/25/22 08:01 Allergies Allergy/AdvReac Type Severity Reaction Status Date / Time No Known Allergies Allergy Unknown Verified 03/25/22 07:59 Home Medications Medication Instructions Recorded Confirmed Type albuterol sulfate 90 mcg/actuation 2 puff inhalation DAILY PRN SOB 02/24/21 02/03/22 History aerosol inhaler budesonide-formoterol HFA 160 2 puff inhalation PRN PRN SOB 02/24/21 02/03/22 History mcg-4.5 mcg/actuation aerosol inhaler (Symbicort) sertraline 100 mg tablet (Zoloft) 100 mg PO DAILY 02/03/22 02/03/22 History sodium,potassium,mag sulfates 17.5 See Rx Instructions PO .COMPLEX 02/11/22 03/11/22 Rx gram-3.13 gram-1.6 gram oral soln #354 mL (Suprep Bowel Prep Kit) conjugated estrogens 0.625 mg 0.625 mg PO DAILY 03/11/22 03/11/22 History tablet (Premarin) Patient hx anesthesia problems: none Family hx anesthesia problems: none Results Review: All pre-operative results and documents have been reviewed as part of the pre- operative evaluation. [facility], [facility] Past Medical History Medical History Acute intermittent porphyria Asthma Surgical History Surgical History History of hysterectomy Social History Social History Smoking status: Never smoker Alcohol intake: current Drinks per week: 5 Substance use: never Substance use type: does not use Living arrangements: with family Spiritual care concerns: No Anes - Eval Final PreProcedure Day of Procedure 03/25/22 08:31 Patient weight: normal Heart: regular rate and rhythm Lungs: clear to auscultation Airway: Mallampati scale class II Neurological: alert and oriented Last oral intake: >/= 8 hours ASA classification: III Emergent: no Anesthetic plan: proceed Anesthesia type and monitoring: general GIVS and standard monitoring Results Review: All pre-operative results and documents have been reviewed as part of the pre- operative evaluation. Informed Consent: The patient's anesthetic plan and its attendant risks and benefits were discussed with the patient/family/POA. Questions were solicited and answers provided to the satisfaction of the patient/family/POA.
[2022-03-25 09:13] VITALS: BP 86/42; PULSE 58; RESP 24; O2SAT 98
[2022-03-25 09:23] VITALS: BP 105/79; PULSE 64; RESP 18; O2SAT 98
[2022-03-25 09:33] VITALS: BP 110/60; PULSE 62; RESP 18; O2SAT 98
== END 2022-03-25 09:45 | disposition home or self-care (01) ==
PROVIDERS: PCP Family Medicine Sports Medicine; Referring Provider Obstetrics & Gynecology; Visit Provider Internal Medicine Gastroenterology
PROC: 0DJD8ZZ Inspection of Lower Intestinal Tract, Via Natural or Artificial Opening Endoscopic (ICD-10-PCS; CPT 45378; principal; 2022-03-25 09:00)
DX: Z12.11 Encounter for screening for malignant neoplasm of colon (principal); J45.909 Unspecified asthma, uncomplicated; E80.21 Acute intermittent (hepatic) porphyria; Z79.51 Long term (current) use of inhaled steroids
CPT/HCPCS: 45378; J2704; J7120

== ENCOUNTER 2022-04-27 09:06 | Outpatient (CLI) | payer OTHER, SELFPAY ==
--- NOTE | ~2022-04-27 | MM_ITS ---
EXAMINATION: MM screening rosa maria BI w andre HISTORY: ....... TECHNIQUE: Craniocaudal and mediolateral oblique 3-D tomosynthesis images were obtained and synthetic 2-D images were generated. CAD analysis was submitted and interpreted. COMPARISON: No prior mammogram is available for comparison at this institution. BREAST PARENCHYMAL COMPOSITION: The breasts are heterogeneously dense, which may obscure small masses . FINDINGS: There is no evidence of suspicious mass, calcification, or architectural distortion to sugg est malignancy in either breast. There has been no suspicious interval change. IMPRESSION: 1. No mammographic evidence of malignancy. 2. Recommend routine screening mammography in one year. BI-RADS Category 1: Negative Reviewed, dictated and finalized at location A. [employer] [facility]
== END 2022-04-27 09:07 | disposition home or self-care (01) ==
LOC: ANHIMG 09:08
PROVIDERS: PCP Family Medicine Sports Medicine; Visit Provider Obstetrics & Gynecology
DX: Z12.31 Encounter for screening mammogram for malignant neoplasm of breast (principal)
CPT/HCPCS: 77063; 77067